=== PATIENT | male | born 1970 | race Caucasian/White ===

== ENCOUNTER 2019-02-24 18:30 | Emergency (ER) | payer SELFPAY ==
[~2019-02-24] VITALS: Ht 167.6 cm; Wt 95.0 kg
[2019-02-24] MEDS ORDERED: KETOROLAC 60MG/2ML VIAL IM STA (21:09)
[2019-02-24 22:37] VITALS: BP 152/85
== END 2019-02-24 22:38 | disposition home or self-care (01) ==
LOC: ER 18:30
DX: S82.435A Nondisplaced oblique fracture of shaft of left fibula, initial encounter for closed fracture (principal); I10 Essential (primary) hypertension; V09.00XA Pedestrian injured in nontraffic accident involving unspecified motor vehicles, initial encounter; Y93.01 Activity, walking, marching and hiking; Y92.89 Other specified places as the place of occurrence of the external cause; Y99.8 Other external cause status
CPT/HCPCS: 29515; 73590; 73610; 96372; 99283; J1885